=== PATIENT | male | born 1940 | race Caucasian/White ===

== ENCOUNTER 2019-08-03 16:01 | Emergency (ER) | payer MEDICARE, OTHER ==
[~2019-08-03] VITALS: Ht 198.1 cm; Wt 95.3 kg
[2019-08-03 16:46] LABS: Basophils # (auto) 0 uL; Basophils % (auto) 0.8 % (0.0-2.0); Eosinophils # (auto) 0.1 uL; Eosinophils % (auto) 2.6 % (0.0-7.0); Hematocrit 37.2 % (41.0-53.0); Hemoglobin 12.5 g/dL (13.5-17.5); Lymphocytes # (auto) 1.1 uL; Lymphocytes % (auto) 19.1 % (10.0-50.0); Mean Corpuscular Hemoglobin 32.5 pg (28.0-32.0); Mean Corpuscular Hgb Conc. 33.5 g/dL (32.0-36.0); Mean Corpuscular Volume 97.1 fL (80.0-100.0); Monocytes # (auto) 0.6 uL; Monocytes % (auto) 9.9 % (0.0-12.0); Neutrophils # (auto) 3.8 uL; Neutrophils % (auto) 67.6 % (37.0-80.0); Nucleated Red Blood Cells % 0.1 %; Platelet Count (auto) 226 10^3/uL (140-450); Red Blood Cells 3.83 10^6/uL (4.5-5.90); Red Cell Distribution Width 15.1 % (11.8-14.3); White Blood Cell 5.6 10^3/uL (4.4-10.8)
[2019-08-03 17:03] LABS: Albumin 3.4 g/dL (3.4-5.0); Calcium 8.1 mg/dL (8.5-10.1); Chloride 110 mmol/L (98-107); Potassium 4.1 mmol/L (3.5-5.1); Sodium 140 mmol/L (136-145)
[2019-08-03 17:11] LABS: Alanine Aminotransferase 17 U/L (16-61); Alkaline Phosphatase 152 U/L (45-117); Anion Gap 4 (5-15); Aspartate Aminotransferase 17 U/L (15-37); BUN/Creatinine Ratio 12.6; Bilirubin, Total 0.3 mg/dL (0.2-1.0); Blood Urea Nitrogen 17 mg/dL (7-18); Carbon Dioxide 26 mmol/L (21-32); GFR African American 66 mL/min; GFR Non-African American 54 mL/min; Glucose 97 mg/dL (74-106)
[2019-08-04 08:21] VITALS: BP 132/79
== END 2019-08-04 08:56 | disposition home or self-care (01) ==
LOC: ER 16:01
DX: R42 Dizziness and giddiness (principal); E86.0 Dehydration
CPT/HCPCS: 36415; 70450; 80053; 84484; 85025; 93005

== ENCOUNTER 2020-01-04 09:49 | Inpatient (IN) | payer MEDICARE, OTHER ==
[~2020-01-04] VITALS: Ht 198.1 cm; Wt 72.5 kg
[2020-01-04 10:41] LABS: Basophils # (auto) 0 10 ^3/uL (0-0.2); Basophils % (auto) 0.2 % (0.0-2.0); Eosinophils # (auto) 0 10 ^3/uL (0-0.8); Eosinophils % (auto) 0.1 % (0.0-7.0); Hematocrit 40.2 % (41.0-53.0); Hemoglobin 13.3 g/dL (13.5-17.5); Lymphocytes # (auto) 0.3 10 ^3/uL (0.4-5.4); Lymphocytes % (auto) 2.8 % (10.0-50.0); Mean Corpuscular Hemoglobin 31.7 pg (28.0-32.0); Mean Corpuscular Volume 96.1 fL (80.0-100.0); Monocytes # (auto) 0.8 10 ^3/uL (0-1.3); Monocytes % (auto) 8.3 % (0.0-12.0); Neutrophils # (auto) 8.5 10 ^3/uL (1.6-8.6); Neutrophils % (auto) 88.6 % (37.0-80.0); Nucleated Red Blood Cells % 0.1 %; Platelet Count (auto) 212 10^3/uL (140-450); Red Blood Cells 4.19 10^6/uL (4.5-5.90); Red Cell Distribution Width 15.7 % (11.8-14.3); White Blood Cell 9.6 10^3/uL (4.4-10.8)
[2020-01-04 11:26] LABS: Albumin 3.1 g/dL (3.4-5.0); Anion Gap 6 (5-15); Blood Urea Nitrogen 23 mg/dL (7-18); Carbon Dioxide 25 mmol/L (21-32); Chloride 104 mmol/L (98-107); Glucose 108 mg/dL (74-106); Potassium 3.5 mmol/L (3.5-5.1); Sodium 135 mmol/L (136-145)
[2020-01-04] MEDS ORDERED: cefTRIAXone 1GM/50ML D5W 50 ML IV ONE (11:30)
[2020-01-04 11:31] LABS: Alanine Aminotransferase 16 U/L (16-61); Alkaline Phosphatase 127 U/L (45-117); Aspartate Aminotransferase 22 U/L (15-37); BUN/Creatinine Ratio 17.6; Bilirubin, Total 0.7 mg/dL (0.2-1.0); GFR African American 68 mL/min; GFR Non-African American 56 mL/min
[2020-01-04 13:44] LABS: Urine Bacteria NONE SEEN /hpf (None Seen); Urine Blood TRACE /uL (Negative); Urine Hyaline Cast FEW /lpf (0 - 2); Urine Mucus FEW (None Seen); Urine Specific Gravity 1.029 (1.001-1.035); Urine WBC 2 /hpf (0 - 3)
[2020-01-04] MEDS ORDERED: IOHEXOL 350 MG/ML 100ML IJ ONE (16:48)
[2020-01-04] MEDS ORDERED: NITROGLYCERIN 0.4 MG SL TAB SL PRN (17:15)
[2020-01-04] MEDS ORDERED: HYDROcodone-ACET 5/325MG TAB PO PRN (17:15)
[2020-01-04] MEDS ORDERED: MECLIZINE HCL 25 MG TAB PO ONE (17:15)
[2020-01-04] MEDS ORDERED: DOCUSATE SOD 100 MG CAP PO PRN (17:15)
[2020-01-04] MEDS ORDERED: MORPHINE SULF INJ 2 MG/ML SYRINGE 1ML IV PRN ×2 (17:15)
[2020-01-04] MEDS ORDERED: LACTATED RINGER'S 2,850 ML IV ONE (17:15)
[2020-01-04] MEDS ORDERED: ALUM & MAG HYDROX-SIMETH LIQ(MAALOX) 30 ML PO PRN (17:15)
[2020-01-04] MEDS ORDERED: ONDANSETRON HCL 4 MG/2 ML VIAL IV PRN (17:15)
[2020-01-04] MEDS ORDERED: VANCOMYCIN PER PHARMACY 0 MG IV SCH (17:15)
[2020-01-04] MEDS ORDERED: MECLIZINE HCL 25 MG TAB PO PRN (17:15)
[2020-01-04] MEDS: ENOXAPARIN SOD 40 MG/0.4 ML SYRINGE SC SCH (17:32)
[2020-01-04] MEDS: PIPERACILLIN-TAZOB 3.375GM 100 ML IV ONE ×2 (17:39→20:43)
[2020-01-04] MEDS: PIPERACILLIN-TAZOB 3.375GM 100 ML IV SCH (17:40)
[2020-01-04] MEDS ORDERED: AZITHROMYCIN 500MG/ 250ML 250 ML IV ONE (17:45)
[2020-01-04 19:30] VITALS: BP 101/72
[2020-01-04] MEDS: SODIUM CHLORIDE 0.9% 1,000 ML IV SCH (20:44)
[2020-01-04 21:43] VITALS: BP 113/60
[2020-01-04] MEDS: VANCOMYCIN 1GM/250ML 250 ML IV SCH (22:37)
[2020-01-04] MEDS: METOPROLOL TARTRATE 25 MG TAB PO SCH (22:38)
[2020-01-05] MEDS: PIPERACILLIN-TAZOB 3.375GM 100 ML IV SCH ×4 (00:57→18:23)
[2020-01-05] MEDS: SODIUM CHLORIDE 0.9% 1,000 ML IV SCH ×4 (00:57→19:48)
[2020-01-05 05:20] VITALS: BP 105/63
[2020-01-05 05:46] LABS: Basophils # (auto) 0 10 ^3/uL (0-0.2); Basophils % (auto) 0.3 % (0.0-2.0); Eosinophils # (auto) 0.1 10 ^3/uL (0-0.8); Eosinophils % (auto) 1.1 % (0.0-7.0); Hematocrit 38.7 % (41.0-53.0); Hemoglobin 12.9 g/dL (13.5-17.5); Lymphocytes # (auto) 0.8 10 ^3/uL (0.4-5.4); Lymphocytes % (auto) 8.9 % (10.0-50.0); Mean Corpuscular Hemoglobin 32.2 pg (28.0-32.0); Mean Corpuscular Hgb Conc. 33.3 g/dL (32.0-36.0); Mean Corpuscular Volume 96.8 fL (80.0-100.0); Monocytes % (auto) 10.5 % (0.0-12.0); Neutrophils # (auto) 7.2 10 ^3/uL (1.6-8.6); Neutrophils % (auto) 79.2 % (37.0-80.0); Nucleated Red Blood Cells % 0.1 %; Platelet Count (auto) 191 10^3/uL (140-450); Red Blood Cells 3.99 10^6/uL (4.5-5.90); Red Cell Distribution Width 15.2 % (11.8-14.3); White Blood Cell 9.1 10^3/uL (4.4-10.8)
[2020-01-05 05:56] LABS: Partial Thromboplastin Time 31.3 sec (23.64-32.05)
[2020-01-05 06:04] LABS: Albumin 2.8 g/dL (3.4-5.0); Calcium 8.4 mg/dL (8.5-10.1); Magnesium 2.3 mg/dL (1.6-2.6); Potassium 3.9 mmol/L (3.5-5.1)
[2020-01-05 06:10] LABS: BUN/Creatinine Ratio 13.3; Bilirubin, Total 0.9 mg/dL (0.2-1.0); Phosphorus 3.1 mg/dL (2.5-4.90); Total Protein 6.7 g/dL (6.4-8.2)
[2020-01-05 09:00] VITALS: BP 98/57
[2020-01-05] MEDS: METOPROLOL TARTRATE 25 MG TAB PO SCH ×2 (09:42→22:06)
[2020-01-05] MEDS: ENOXAPARIN SOD 40 MG/0.4 ML SYRINGE SC SCH (09:43)
[2020-01-05] MEDS: VANCOMYCIN 1GM/250ML 250 ML IV SCH (11:51)
[2020-01-05 13:00] VITALS: BP 110/58
[2020-01-05 16:30] VITALS: BP 111/72
[2020-01-05 21:41] VITALS: BP 114/73
[2020-01-06] MEDS: VANCOMYCIN 1GM/250ML 250 ML IV SCH (00:55)
[2020-01-06] MEDS: PIPERACILLIN-TAZOB 3.375GM 100 ML IV SCH ×3 (02:06→13:18)
[2020-01-06] MEDS: SODIUM CHLORIDE 0.9% 1,000 ML IV SCH ×2 (02:28→09:08)
[2020-01-06 04:38] VITALS: BP 125/68
[2020-01-06 06:54] LABS: Basophils # (auto) 0 10 ^3/uL (0-0.2); Basophils % (auto) 0.1 % (0.0-2.0); Eosinophils # (auto) 0.1 10 ^3/uL (0-0.8); Eosinophils % (auto) 1.9 % (0.0-7.0); Hematocrit 38.9 % (41.0-53.0); Lymphocytes # (auto) 0.8 10 ^3/uL (0.4-5.4); Lymphocytes % (auto) 11.5 % (10.0-50.0); Mean Corpuscular Hemoglobin 31.9 pg (28.0-32.0); Mean Corpuscular Hgb Conc. 33.4 g/dL (32.0-36.0); Mean Corpuscular Volume 95.5 fL (80.0-100.0); Monocytes # (auto) 0.7 10 ^3/uL (0-1.3); Monocytes % (auto) 9.8 % (0.0-12.0); Neutrophils # (auto) 5.6 10 ^3/uL (1.6-8.6); Neutrophils % (auto) 76.7 % (37.0-80.0); Nucleated Red Blood Cells % 0.2 %; Platelet Count (auto) 237 10^3/uL (140-450); Red Blood Cells 4.08 10^6/uL (4.5-5.90); Red Cell Distribution Width 15.3 % (11.8-14.3); White Blood Cell 7.2 10^3/uL (4.4-10.8)
[2020-01-06 07:04] LABS: Potassium 3.5 mmol/L (3.5-5.1)
[2020-01-06 07:16] LABS: BUN/Creatinine Ratio 12.6; Calcium 8.6 mg/dL (8.5-10.1)
[2020-01-06 09:10] VITALS: BP 134/78
[2020-01-06] MEDS: METOPROLOL TARTRATE 25 MG TAB PO SCH (09:44)
[2020-01-06] MEDS: ENOXAPARIN SOD 40 MG/0.4 ML SYRINGE SC SCH (09:44)
[2020-01-06 12:42] VITALS: BP 105/66
[2020-01-06 14:22] VITALS: BP 105/66
== END 2020-01-06 14:48 | disposition home or self-care (01) | DRG 871 ==
LOC: EDBD 09:49 → ER 09:49 → TELE-WESTW 09:50
PROVIDERS: ADMIT Hospitalist; ATTEND Family Medicine
DX: A41.9 Sepsis, unspecified organism (principal); J18.9 Pneumonia, unspecified organism; N17.0 Acute kidney failure with tubular necrosis; E44.0 Moderate protein-calorie malnutrition; E87.1 Hypo-osmolality and hyponatremia; J91.8 Pleural effusion in other conditions classified elsewhere; N18.3 Chronic kidney disease, stage 3 (moderate); I77.810 Thoracic aortic ectasia; K21.9 Gastro-esophageal reflux disease without esophagitis; D72.810 Lymphocytopenia; K76.0 Fatty (change of) liver, not elsewhere classified; Z85.048 Personal history of other malignant neoplasm of rectum, rectosigmoid junction, and anus; Z85.118 Personal history of other malignant neoplasm of bronchus and lung; Z85.068 Personal history of other malignant neoplasm of small intestine; Z87.11 Personal history of peptic ulcer disease; Z90.411 Acquired partial absence of pancreas; Z93.2 Ileostomy status; Z93.3 Colostomy status; Z03.818 Encounter for observation for suspected exposure to other biological agents ruled out; Z80.0 Family history of malignant neoplasm of digestive organs; Z68.24 Body mass index [BMI] 24.0-24.9, adult
CPT/HCPCS: 36415; 71045; 71275; 80048; 80053; 81001; 83605; 83735; 84100; 84484; 85025; 85610; 85730; 87040; 87070; 87086; 87804; 87880; 93005; G0378; J0696; J2543